=== PATIENT | female | born 1995 | race Caucasian/White ===

== ENCOUNTER 2021-10-05 07:49 | Outpatient (CLI) | payer OTHER ==
[2021-10-05 08:22] LABS: BHCG - Serum Negative (NEGATIVE); Pregs Control Background? CLEAR/WHITE (CLR/WHITE); Pregs Control Bar Appear? YES (CONTROL BAR)
[2021-10-05] MEDS ORDERED: Iopamidol 300 61% 50 ML VIAL FS ONE (11:16)
== END 2021-10-05 07:50 | disposition home or self-care (01) ==
LOC: RAD 07:49
PROVIDERS: ATTEND Obstetrics & Gynecology
DX: O00.90 Unspecified ectopic pregnancy without intrauterine pregnancy (principal)
CPT/HCPCS: 58340; 74740; 84703